=== PATIENT | male | born 1995 | race Caucasian/White ===

== ENCOUNTER 2019-01-13 22:18 | Emergency (ER) | payer OTHER ==
[2019-01-13] MEDS ORDERED: VALACYCLOVIR HCL 500 MG TABLET PO ONE (23:29)
--- NOTE | 2019-01-13 23:34 | ER Document Report ---
ED Skin Rash/Insect Bite/Abscs - General Chief Complaint: Rash Stated Complaint: RASH Time Seen by Provider: 01/13/19 23:22 Mode of Arrival: Ambulatory Information source: Patient Notes: 23-year-old male presented to ED for rash to the right side of the scalp to the forehead. There is none on his face. It does not cross the midline. He states that some of the rash has been there since Tuesday but most of his been there less than 3 days. He is alert oriented respirations regular and unlabored speaking in full sentences. He states it is not very painful deep rash. TRAVEL OUTSIDE OF THE [place] IN LAST 30 DAYS: No - HPI Patient complains to provider of: Skin rash/lesion Onset: Other - Started last week but has had progressively more rash Onset/Duration: Gradual Quality of pain: Throbbing Severity: Moderate Pain Level: 3 Skin Character: Lesion, Rash, Vesicular - Herpetiform Quality of rash: Itchy, Painful Exacerbated by: Denies Relieved by: Denies Similar symptoms previously: No Recently seen / treated by doctor: No - Related Data Allergies/Adverse Reactions: No Known Allergies Allergy (Unverified 01/13/19 23:32) Past Medical History - General Information source: Patient - Social History Smoking Status: Current Every Day Smoker Cigarette use (# per day): Yes - 1/2 to 1 pack/day Chew tobacco use (# tins/day): No Smoking Education Provided: Yes - 4 minutes Frequency of alcohol use: Heavy - 2 beer a day Drug Abuse: None 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 Lives with: Parents Family History: Reviewed & Not Pertinent Patient has suicidal ideation: No Patient has homicidal ideation: No Pulmonary Medical History: Reports: None EENT Medical History: Reports: None Neurological Medical History: Reports: None Endocrine Medical History: Reports: None Renal/ Medical History: Reports: None Malignancy Medical History: Reports None GI Medical History: Reports: None Musculoskeletal Medical History: Reports None Skin Medical History: Reports None Psychiatric Medical History: Reports: None Traumatic Medical History: Reports: None Infectious Medical History: Reports: None Surgical Hx: Negative Past Surgical History: Reports: None - Immunizations Immunizations up to date: Yes Review of Systems - Review of Systems Constitutional: No symptoms reported EENT: No symptoms reported Cardiovascular: No symptoms reported Respiratory: No symptoms reported Gastrointestinal: No symptoms reported Genitourinary: No symptoms reported Male Genitourinary: No symptoms reported Musculoskeletal: No symptoms reported Skin: Rash - Herpetiform rash to the right forehead and top of the head. It does not cross the midline Hematologic/Lymphatic: No symptoms reported Neurological/Psychological: No symptoms reported -: Yes All other systems reviewed and negative Physical Exam - Vital signs Vitals: Temp Pulse Resp BP Pulse Ox 98 F 74 18 126/75 H 98 01/13/19 22:28 01/13/19 22:28 01/13/19 22:28 01/13/19 22:28 01/13/19 22:28 Interpretation: Normal - General General appearance: Appears well, Alert - HEENT Head: Normocephalic, Atraumatic Eyes: Normal Pupils: PERRL - Respiratory Respiratory status: No respiratory distress Chest status: Nontender Breath sounds: Normal Chest palpation: Normal - Cardiovascular Rhythm: Regular Heart sounds: Normal auscultation Murmur: No - Abdominal Inspection: Normal Distension: No distension Bowel sounds: Normal Tenderness: Nontender Organomegaly: No organomegaly - Back Back: Normal, Nontender - Extremities General upper extremity: Normal inspection, Nontender, Normal color, Normal ROM, Normal temperature General lower extremity: Normal inspection, Nontender, Normal color, Normal ROM, Normal temperature, Normal weight bearing. No: Kush's sign - Neurological Neuro grossly intact: Yes Cognition: Normal Orientation: AAOx4 Welches Coma Scale Eye Opening: Spontaneous Ryne Coma Scale Verbal: Oriented Ryne Coma Scale Motor: Obeys Commands Ryne Coma Scale Total: 15 Speech: Normal Motor strength normal: LUE, RUE, LLE, RLE Sensory: Normal - Psychological Associated symptoms: Normal affect, Normal mood - Skin Skin Temperature: Warm Skin Moisture: Dry Skin Color: Normal Skin irregularity: Rash Location of irregularity: Scalp, Other - Forehead Character of irregularity: Vesicular - Herpetiform Irregularity with: Swelling, Tenderness Course - Re-evaluation Re-evalutation: 01/13/19 23:39 Patient was treated with Valtrex. He was discharged home with prescription for Valtrex. He was offered Vicodin and stated he would take ibuprofen. He stated he just wanted to know what the rash was from because it was weird. He states it is painful but has been using ibuprofen. - Vital Signs Vital signs: Temp Pulse Resp BP Pulse Ox 98.2 F 71 18 126/69 H 98 01/13/19 23:43 01/13/19 23:43 01/13/19 23:43 01/13/19 23:43 01/13/19 23:43 Discharge - Discharge Clinical Impression: Shingles Qualifiers: Herpes zoster complications: without complications Qualified Code(s): B02.9 - Zoster without complications Condition: Stable Disposition: HOME, SELF-CARE Instructions: Family Physicians / Practices Additional Instructions: Shingles You have shingles. Shingles is caused by the chicken pox virus, The virus has been surviving dormant in a nerve cell since you had chicken pox years ago. The virus has spread down a nerve root to reach the skin. Typically, an band-like area of pain and skin sensitivity develops, then small blisters erupt in the area. Shingles lasts two or three weeks, but sometimes leaves persistent pain. You are contagious -- you can give children chicken pox. But you can't give anyone shingles. Antiviral medicines (such as acyclovir or famciclovir) can help, but the rash usually worsens for about a week. Pain medication is often given if the area hurts. Antihistamines such as Benadryl may be necessary for itching if it does not respond to soda baths and calamine lotion. Sometimes cortisone medicine or nerve-block shots are necessary if pain is severe. If the area remains severely painful as the sores heal, or if you suspect an infection developing in the sores, see your doctor. Valtrex Valtrex is used to treat infections caused by the Herpes family of viruses. It's available as capsules or ointment. Valtrex is most effective if started at the first sign of the viral outbreak. It can decrease the severity and duration of symptoms. However, it doesn't eliminate the virus from the body completely. If you're prone to repeated outbreaks of herpes, you'll continue to have attacks. If pills have been prescribed, take them for the full recommended course. Occasionally, mild nausea or headaches may occur. Call the doctor if you develop wheezing, itching, rash, shortness of breath, or lightheadedness. Prescriptions: Valacyclovir HCl [Valtrex] 1,000 mg PO TID #21 tablet Forms: Elevated Blood Pressure, Smoking Cessation Education, Return to Work
[2019-01-13 23:48] VITALS: BP 126/69
== END 2019-01-13 23:48 | disposition home or self-care (01) ==
LOC: ER 22:18
DX: B02.9 Zoster without complications (principal); F17.210 Nicotine dependence, cigarettes, uncomplicated; Z71.6 Tobacco abuse counseling
CPT/HCPCS: 99282